=== PATIENT | female | born 1950 | race Caucasian/White ===

== ENCOUNTER 2017-08-28 20:08 | Inpatient (IN) | payer MEDICARE, OTHER ==
[~2017-08-28] VITALS: Ht 162.6 cm; Wt 72.3 kg
[~2017-08-28 20:08] MED LIST: BAYER ASPIRIN PO; CALCIUM; COZAAR25 MG PO; DILTIAZEM 24HR300 M2; EQUATE ACID REDUCER; EQUATE STOOL SOFTNER; FLAGYL500 MG PO; LISINOPRIL20 MG; METOPROLOL TART50 MG PO; MULTIVITAMIN; OXYBUTYNIN CHLOR5 M1 PO; PANTOPRAZOLE SO40 MG PO; SIMVASTATIN10 MG PO; SUCRALFATE1 GM; WARFARIN SODIUM3 MG PO; [UNRECOGNIZED DRUG - OTHER]
[2017-08-28] MEDS ORDERED: ASPIRIN 81 MG CHEW TAB PO ONE (20:30)
[2017-08-28 20:41] LABS: BASOPHILS # (AUTO) 0.1 (0.0-0.1); BASOPHILS % 0.8 % (0.0-1.0); EOSINOPHILS # (AUTO) 0.5 (0.0-0.4); EOSINOPHILS % 6.2 % (0.0-6.0); HEMATOCRIT 41.3 % (34.2-44.1); HEMOGLOBIN 13.8 g/dL (12.0-16.0); LYMPHOCYTES # (AUTO) 2.3 (1.0-3.2); LYMPHOCYTES % 27.3 % (18.0-39.1); MEAN CORPUSCULAR HEMOGLOBIN 32.1 pg (28-32); MEAN CORPUSCULAR HGB CONC 33.4 g/dL (31-35); MONOCYTES # (AUTO) 0.9 (0.2-0.8); MONOCYTES % 10.4 % (4.4-11.3); NEUTROPHILS # (AUTO) 4.6 (2.1-6.9); NEUTROPHILS % 54.3 % (38.7-80.0); PLATELET COUNT 162 x10e3/uL (140-360); RED CELL DISTRIBUTION WIDTH 13.6 % (11.7-14.4)
[2017-08-28 20:45] LABS: INR 1.67; PARTIAL THROMBOPLASTIN TIME 29.4 seconds (23.8-35.5); PROTHROMBIN TIME 20.6 seconds (11.9-14.5)
[2017-08-28 20:52] LABS: ALBUMIN 4.1 g/dL (3.5-5.0); ALBUMIN/GLOBULIN RATIO 1.1 (0.8-2.0); ANION GAP 12.4 mmol/L (8-16); CALCIUM 9.6 mg/dL (8.4-10.2); CREATININE, SERUM 0.97 mg/dL (0.57-1.11); POTASSIUM 3.4 mmol/L (3.5-5.1)
[2017-08-28 20:58] LABS: CREATINE KINASE MB 1.2 ng/mL (0.00-5.00); TROPONIN I 0.004 ng/mL (0-0.300)
--- NOTE | 2017-08-28 21:32 | Diagnostic Imaging Report ---
EXAMINATION: CHEST SINGLE (PORTABLE) INDICATION: Weakness COMPARISON: 06/11/2015 FINDINGS: TUBES and LINES: None. LUNGS: Lungs are well inflated. Lungs are clear. There is no evidence of pneumonia or pulmonary edema. PLEURA: No pleural effusion or pneumothorax. HEART AND MEDIASTINUM: The cardiomediastinal silhouette is unremarkable. There are atherosclerotic calcifications within the aorta. BONES AND SOFT TISSUES: No acute osseous lesion. Lower cervical spine anterior fusion. Soft tissues are remarkable for bilateral surgical clips. UPPER ABDOMEN: No free air under the diaphragm. IMPRESSION: No acute thoracic abnormality. Signed by: Dr. Rah Lizama M.D. on 08/28/2017 9:28 PM
--- NOTE | 2017-08-28 21:33 | Diagnostic Imaging Report ---
EXAMINATION: Head CT without contrast. HISTORY:Possible stroke, weakness. COMPARISON:None. TECHNIQUE: Multidetector axial images were obtained from the foramen magnum to the vertex without contrast. The images were reconstructed using brain and bone algorithms. Thin section brain images were reformatted into coronal and sagittal planes. Intravenous contrast: None IMAGE QUALITY: Acceptable. FINDINGS: Skull/scalp: No abnormality. Parenchyma: Focal hypodensity in right perirolandic region that extends to the right parietal centrum semiovale and mcdermott radiata as well as right periatrial region represents age indeterminate vascular insult. Nonspecific few, scattered supratentorial white matter hypodensity are likely related to small vessel ischemic changes. No acute hemorrhage or mass. Arteries: Atherosclerotic calcification in bilateral carotid siphon Dural sinuses: No abnormal density suggestive of thrombosis. Ventricles: No hydrocephalus or displacement. Extra-axial spaces: No abnormal density. Brain volume: Normal for age. Craniocervical junction: No mass, Chiari malformation, or basilar invagination. Sella: No mass. Paranasal/mastoid sinuses: Moderate mucosal thickening in bilateral ethmoid sinuses. IMPRESSION: 1. Age indeterminate vascular insult in right perirolandic region that extends to the parietal centrum semiovale and mcdermott radiata. 2. Mild supratentorial white matter microvascular ischemic changes. Signed by: Dr. Crystal Patel M.D. on 08/28/2017 9:30 PM
[2017-08-28 22:27] LABS: BILIRUBIN,URINE NEGATIVE (NEGATIVE); KETONES,URINE NEGATIVE (NEGATIVE); LEUKOCYTE ESTERASE ,URINE 2+ (NEGATIVE); NITRITE,URINE NEGATIVE (NEGATIVE); URINE UROBILINOGEN 0.2 mg/dL (0.2 - 1)
[2017-08-28 22:29] LABS: CLARITY,URINE CLEAR (CLEAR); COLOR,URINE YELLOW (YELLOW); PROTEIN,URINE DIPSTICK TRACE (NEGATIVE)
[2017-08-28 22:40] LABS: BACTERIA,URINE FEW /HPF; EPITHELIAL CELLS,URINE FEW /LPF
[2017-08-28] MEDS ORDERED: MONTELUKAST SOD10 MG PO (23:25)
[2017-08-28] MEDS ORDERED: WARFARIN SODIUM1 MG PO (23:25)
[2017-08-28] MEDS ORDERED: CETIRIZINE HCL10 MG PO (23:25)
[2017-08-29] MEDS ORDERED: ONDANSETRON HCL INJ 2 MG/ML VIAL IV PRN (00:15)
[2017-08-29] MEDS: SODIUM CHLORIDE 0.9% 1000ML 1,000 ML IV SCH ×2 (00:34→08:26)
[2017-08-29] MEDS ORDERED: CEFTRIAXONE SOD 1 GM in WATER STERILE 10ML VIAL 10 ML IV SCH (01:00)
[2017-08-29 01:29] VITALS: BP 155/75
[2017-08-29 04:00] VITALS: BP 150/70
[2017-08-29 08:00] VITALS: BP 169/75
[2017-08-29] MEDS ORDERED: POTASSIUM CHLORIDE 10 MEQ TABCR PO ONE (08:00)
[2017-08-29] MEDS: LORATADINE 10 MG TAB PO SCH (08:26)
[2017-08-29] MEDS: LOSARTAN POTASSIUM 25 MG TAB PO SCH (08:26)
[2017-08-29] MEDS: ASPIRIN 81 MG CHEW TAB PO SCH (08:26)
[2017-08-29] MEDS: OXYBUTYNIN CHLORIDE XL 5 MG TAB PO SCH (08:27)
[2017-08-29] MEDS: METOPROLOL TARTRATE 50 MG TAB PO SCH ×2 (08:27→16:47)
[2017-08-29] MEDS: MONTELUKAST SODIUM 10 MG TAB PO SCH (08:27)
[2017-08-29] MEDS: PANTOPRAZOLE SOD 40 MG TABEC PO SCH (08:27)
[2017-08-29] MEDS: CEFTRIAXONE SOD 2 GM in WATER STERILE 10ML VIAL 20 ML IV SCH (08:52)
[2017-08-29 12:11] VITALS: BP 150/72
--- NOTE | 2017-08-29 13:57 | Diagnostic Imaging Report ---
EXAMINATION: MRI of the brain without contrast. HISTORY: Evaluate for stroke/TIA, weakness COMPARISON: Head CT on 08/28/2017 TECHNIQUE: Sagittal T2; axial DWI, T2, FLAIR, T1-IR, T2 gradient echo; coronal FLAIR. IMAGE QUALITY: Adequate. FINDINGS: Parenchyma: 1. Cavitating encephalomalacia in the right parietal mcdermott radiata-periventricular white matter, with compensatory dilatation of the right lateral ventricle, likely sequela from remote insult such as infarct, infection or trauma, correlate with past medical history. 2. Scattered and mildly confluent periventricular white matter T2 hyperintense foci as well as in the right elizabeth, most likely nonspecific mild chronic microvascular ischemic changes. 3. No mass, hemorrhage, acute or chronic infarcts. Skull: Unremarkable. Vessels: Expected flow voids present in the major arteries and dural sinuses. Extra-axial spaces: No abnormal signal intensity or mass effect. Brain volume: Within normal limits for age. Ventricles: No hydrocephalus or displacement. Foramen magnum: Unremarkable. Sella: Unremarkable. Paranasal / mastoid sinuses: Mild mucosal inflammatory thickening of the bilateral ethmoidal and maxillary sinuses. IMPRESSION: 1. No acute infarct. 2. Right parietal encephalomalacia, likely sequela from remote insult. 3. Mild chronic microvascular ischemic changes Signed by: Dr. Minoo Jean M.D. on 08/29/2017 1:53 PM
[2017-08-29 15:49] VITALS: BP 131/68
--- NOTE | 2017-08-29 16:34 | Consultation ---
DATE OF CONSULTATION: August 29, 2017 CARDIOLOGY CONSULTATION CHIEF COMPLAINT: Is dizziness. HISTORY OF PRESENT ILLNESS: Ms. Asencio is a 67-year-old female with a history of atrial fibrillation on warfarin. She comes in with altered mental status and disorientation along with slurred speech which has recovered completely. Her INR at the time of admission was 1.67 and is subtherapeutic. Prior to this admission, she had a stress test done at Dr. Sudarshan Sandoval's office which showed some mild inferior ischemia. Her cardiac enzymes at the time of admission currently are normal. PAST MEDICAL HISTORY: As listed above. SOCIAL HISTORY: Patient does not smoke or drink. DRUG ALLERGIES: LEVOFLOXACIN, MORPHINE. REVIEW OF SYSTEMS: Negative except as dictated in the history of present illness. PHYSICAL EXAMINATION: VITALS: Afebrile, heart rate 66, blood pressure 150/72, O2 sat 98%. CARDIOVASCULAR: Regular rhythm. No murmurs or gallops. LUNGS: Clear to auscultation bilaterally. ABDOMEN: Soft. Bowel sounds heard adequately. NEUROLOGIC: Nonfocal. ASSESSMENT: 1. Transient ischemic attack. 2. Coronary artery disease with abnormal stress test. RECOMMENDATION: MRI of the brain reveals no evidence of acute infarct. The patient's warfarin is subtherapeutic. I had an extended discussion with her about maintaining subtherapeutic levels of warfarin. Additionally, she has had an abnormal stress test. Cardiac cath is indicated. This will be performed once her INR is less than 1.3. I thank Dr. Sandoval for this consultation. Job#: [id number] EV
[2017-08-29] MEDS ORDERED: WARFARIN SOD 1 MG TAB PO SCH ×2 (17:00)
--- NOTE | 2017-08-29 18:12 | Consultation ---
DATE OF CONSULTATION: August 29, 2017, at 2:30 in the afternoon. NEUROLOGICAL CONSULTATION A patient of Dr. Sudarshan Sandoval. REASON FOR CONSULTATION: TIA. HISTORY OF PRESENT ILLNESS: This is a 67-year-old female who has been stable until yesterday. They said in the evening they were sitting , eating. She was feeling well but then suddenly started feeling like generalized weak, like dizzy, like lightheaded and started having some blurry vision. All this got worse and she said she could not see anything and she felt like she was going to pass out. The whole episode lasted for about 15 minutes. She was brought to the hospital emergency room for further evaluation and management. At the time of this spell, she denies any headache. She denies any swallowing difficulty. Also the says her speech was somewhat slurred. She denied any chest pain, palpitation. No focal paresthesia, no focal weakness. Just generalized weakness. PAST HISTORY: Hypertension. She had had previous history of stroke, a history of atrial fibrillation, coronary artery disease. SURGERY: She has a hysterectomy and double mastectomies. ALLERGIES: NONE KNOWN. SOCIAL HISTORY: Apparently she does not smoke or drink. LIST OF MEDICATION SHE HAS BEEN TAKING: At home she has been taking simvastatin 10 mg a day. She is taking Jorge aspirin 81 mg a day. Oxybutynin 5 mg daily. Metoprolol tartrate 50 mg a day. Losartan 25 mg a day. Flagyl and pantoprazole. The patient has been taking warfarin 5 mg a day. FAMILY HISTORY: Noncontributory. REVIEW OF SYSTEMS: At the present time, all 12 steps negative except what is described above. GENERAL PHYSICAL EXAMINATION VITAL SIGNS: Blood pressure is 150/72, pulse 66, temperature is 96. GENERAL: She is feeling well. No chest pain, no palpitation, no visual disturbance, no headaches, no focal weakness, no focal paresthesia. Patient states that in the past she had a stroke several years ago, and that is when she started having atrial fibrillation. LUNGS: Clear to auscultation. HEART: Regular sinus rhythm. There was no murmur. ABDOMEN: Soft. No tenderness. No organomegaly. MUSCULOSKELETAL: Lower extremities: No edema, no cyanosis, no clubbing. No back or neck pain. NEUROLOGIC Mental status: At the time of this examination, she is fully alert. She is oriented x3. Speech is clear. No dysarthria. No dysphagia. Cranial nerves: Pupils were both equal and reactive. External ocular movements were full. No nystagmus. Visual field on confrontation was grossly normal. No facial weakness. Tongue protrudes midline. Palatal movements normal. Motor power: Patient is able to elevate each leg against gravity approximately 80 degrees without any difficulty. On the upper extremities, there is no weakness in either proximal or distal muscles of both upper extremities and both lower extremities also. Flexion of the hip is 5/5. Flexion and extension of the knees 5/5. Dorsiflexion of the ankles 5/5. Plantarflexion is 5/5. Dorsal extension 5/5. Deep tendon reflexes: Triceps, biceps, radials 1+. Knee jerks 1+. Ankle jerks were absent bilaterally. Plantar stimulation is down bilaterally. Coordination: Hkhvxy-od-jdno is normal. GAIT: Deferred. NECK: Supple. Normal range of motion without discomfort. Carotid pulsations were present bilaterally. There were no carotid bruits, neither subclavian bruits bilaterally. LABORATORY WORKUP: CBC shows WBC 8400 with a hemoglobin 13.8, hematocrit 41.3, platelets 162,000. Chemistry: Sodium 139, potassium 3.4, BUN 14, creatinine 0.97, estimated GFR 57, calcium 9.6, glucose 104. Liver enzymes are all normal. Troponin is normal. Urinalysis: WBC 11-20, protein trace, blood 2+. Urine culture is pending. IMPRESSION 1. Acute transient ischemic attack (bilateral amaurosis fugax). 2. Hypertension. 3. Acute cystitis. RECOMMENDATION: I reviewed the films for the MRI of the brain and agree with the (1) right parietal encephalomalacia probably from previous stroke that she mentioned. (2) There is chronic small-vessel disease, nothing acute. Patient is scheduled to have a cardiac cath by Dr. Schultz. We will wait for those results and will discuss with the patient and with the attending and will follow the patient closely. Job#: [id number] EV
[2017-08-29 20:00] VITALS: BP 152/73
[2017-08-29] MEDS: SIMVASTATIN 20 MG TAB PO SCH (21:41)
[2017-08-30] VITALS: BP 155/69
--- NOTE | 2017-08-30 01:17 | History and Physical ---
CHIEF COMPLAINT: 1. Dizziness. 2. Severe weakness. HPI: This is 67-year-old female with past medical history of hypertension; hyperlipidemia; coronary artery disease; atrial fibrillation, on Coumadin, was sitting at [employer], meeting with the , found to have dizziness, brief loss of vision on the left eye, no focal weakness, but has generalized weakness and the patient was not feeling good, so told to take her to the emergency room. In the emergency room, found to have little abnormal on CAT scan. Has some burning urination. UA showed some kind of UTI. No chest pain. No shortness of breath. No diarrhea. No abdominal pain. No nausea. No vomiting. No hematemesis. No melena. No seizures. No focal weakness. No palpitation. No leg pain. No leg swelling. PAST MEDICAL HISTORY: 1. Hypertension. 2. Hyperlipidemia. 3. Atrial fibrillation. 4. Coronary artery disease. PAST SURGICAL HISTORY: Hysterectomy. SOCIAL HISTORY: Patient is . Lives with . HABITS: Denies smoking. Denies alcohol use. Denies illicit drug use. FAMILY HISTORY: Noncontributory. MEDICATIONS LIST: Attached. REVIEW OF SYSTEMS: GENERAL: Generalized fatigue and weakness. HEENT: No diplopia. Has some blurry vision on the left eye. CARDIOPULMONARY: No chest pain. No palpitation. No shortness of breath. ALIMENTARY SYSTEM: No nausea. No vomiting. MUSCULOSKELETAL SYSTEM: No joint pain. CENTRAL NERVOUS SYSTEM: No focal weakness. No seizures. PHYSICAL EXAMINATION: GENERAL: Bxqxp-ilqkd-psir-old female who is alert and oriented x3, in no gross distress. VITAL SIGNS: Temperature 98.2, pulse 82, respiratory rate 18, blood pressure 150/80. HEENT: Within normal limits. NECK: Supple. No JVD, no carotid bruit. LUNGS: Clear to auscultation and percussion bilaterally. No added sounds. HEART: S1 and S2. Regular rate and rhythm. No S3, no S4. No murmur. ABDOMEN: Soft, nontender. No guarding, no rigidity. EXTREMITIES: No pedal edema. Peripheral pulses +1. PAYROLL ACCOUNTING CLERK: Grossly nonfocal. LABORATORY DATA: Urine showed UTI. CBC normal. CMP normal. CT of head showed some infarct. EKG, normal sinus rhythm, 70 per minute. ASSESSMENT: 1. Possible transient ischemic attack. 2. Urinary tract infection. 3. Weakness. 4. Hypertension. 5. Hyperlipidemia. 6. Atherosclerotic heart disease. 7. Coronary artery disease. PLAN: Admit to telemetry. Cardiology consult, Dr. Blas. Neuro consult, Dr. Yanez. Increase dose of Coumadin to 2 mg p.o. daily. MRI of brain. Carotid Doppler. Will discuss with boy's adviser. Discussed with patient, told condition and prognosis. Job#: [id number]
[2017-08-30 04:00] VITALS: BP 160/76
[2017-08-30] MEDS: SODIUM CHLORIDE 0.9% 1000ML 1,000 ML IV SCH (05:15)
[2017-08-30 07:20] LABS: BASOPHILS % 0.6 % (0.0-1.0); EOSINOPHILS # (AUTO) 0.5 (0.0-0.4); EOSINOPHILS % 6.8 % (0.0-6.0); HEMATOCRIT 39.2 % (34.2-44.1); LYMPHOCYTES # (AUTO) 1.7 (1.0-3.2); LYMPHOCYTES % 25.2 % (18.0-39.1); MEAN CORPUSCULAR HEMOGLOBIN 31.6 pg (28-32); MEAN CORPUSCULAR HGB CONC 33.2 g/dL (31-35); MEAN CORPUSCULAR VOLUME 95.4 fL (81-99); MONOCYTES # (AUTO) 0.7 (0.2-0.8); MONOCYTES % 10.6 % (4.4-11.3); NEUTROPHILS # (AUTO) 3.7 (2.1-6.9); NEUTROPHILS % 56.2 % (38.7-80.0); PLATELET COUNT 139 x10e3/uL (140-360); RED BLOOD COUNT 4.11 x10e6/uL (3.6-5.1); RED CELL DISTRIBUTION WIDTH 13.6 % (11.7-14.4)
[2017-08-30 07:33] LABS: INR 1.42; PROTHROMBIN TIME 18.1 seconds (11.9-14.5)
[2017-08-30 07:47] LABS: ALANINE AMINOTRANSFERASE 19 IU/L (0-55); ALBUMIN 3.4 g/dL (3.5-5.0); ALBUMIN/GLOBULIN RATIO 1.1 (0.8-2.0); ALKALINE PHOSPHATASE 55 IU/L (40-150); ANION GAP 11.6 mmol/L (8-16); BLOOD UREA NITROGEN 9 mg/dL (7-26); BUN/CREATININE RATIO 15 (6-25); CALCIUM 9.3 mg/dL (8.4-10.2); CARBON DIOXIDE 22 mmol/L (22-29); CHLORIDE 113 mmol/L (98-107); EST GLOMERULAR FILTRATION RATE > 60 ML/MIN (60-); GLUCOSE 103 mg/dL (74-118); POTASSIUM 3.6 mmol/L (3.5-5.1); SODIUM 143 mmol/L (136-145)
[2017-08-30] MEDS: METOPROLOL TARTRATE 50 MG TAB PO SCH ×2 (08:05→16:46)
[2017-08-30] MEDS: LOSARTAN POTASSIUM 25 MG TAB PO SCH (08:05)
[2017-08-30 08:16] VITALS: BP 189/91
[2017-08-30] MEDS: CEFTRIAXONE SOD 2 GM in WATER STERILE 10ML VIAL 20 ML IV SCH (08:31)
[2017-08-30] MEDS: ASPIRIN 81 MG CHEW TAB PO SCH (09:00)
[2017-08-30] MEDS: LORATADINE 10 MG TAB PO SCH (09:00)
[2017-08-30] MEDS: MONTELUKAST SODIUM 10 MG TAB PO SCH (09:00)
[2017-08-30] MEDS: OXYBUTYNIN CHLORIDE XL 5 MG TAB PO SCH (09:00)
[2017-08-30] MEDS: PANTOPRAZOLE SOD 40 MG TABEC PO SCH (09:00)
[2017-08-30] MEDS ORDERED: HYDRALAZINE HCL 20 MG/ML VIAL IV PRN (09:45)
[2017-08-30 09:49] LABS: CHOL/HDL RATIO 2.8 (3.0-3.6); CHOLESTEROL 170 MD/DL (0-199); HDL CHOLESTEROL 60 MG/DL (40-60); LDL CHOLESTEROL 97 MG/DL (60-130); TRIGLYCERIDES 64 MG/DL (0-149)
--- NOTE | 2017-08-30 11:01 | Progress Note ---
DATE: August 30, 2017 CARDIOLOGY PROGRESS NOTE SUBJECTIVE: Patient denies chest pain or shortness of breath. Unfortunately, her INR remains elevated. OBJECTIVE VITAL SIGNS: Temperature 96.9 degrees, pulse 66, respiratory rate 20, blood pressure 191/86, oxygen saturation 100% on room air. GENERAL: Awake, alert, in no acute distress. LUNGS: Clear to auscultation bilaterally. No wheezes or crackles. CARDIOVASCULAR: Normal rate, regular rhythm. No murmur. Normal S1 and S2. ABDOMEN: Soft, nontender. EXTREMITIES: No edema. CARDIAC MEDICATIONS Metoprolol tartrate 50 mg p.o. b.i.d. Losartan 100 mg p.o. daily. Simvastatin 10 mg p.o. at bedtime. Aspirin 81 mg p.o. daily. LABS: WBC 6.6, hemoglobin 13, hematocrit 39.2, platelets 139. Sodium 143, potassium 3.6, chloride 113, CO2 of 22, BUN 9, creatinine 0.6. Triglycerides 64, cholesterol 170, LDL 97, HDL 60. TELEMETRY: Normal sinus rhythm. IMPRESSION 1. Transient ischemic attack. 2. Coronary artery disease with abnormal stress test. 3. Urinary tract infection. 4. Hypertension with hyperlipidemia. RECOMMENDATIONS: Patient's INR is currently too high for coronary angiography at this time. N.p.o. after midnight was planned for coronary angiogram tomorrow. In the meantime, continue current cardiac medications. Thank you for this consult. We will continue to follow. Job#: [id number] DOLAN MTDD
[2017-08-30 12:00] VITALS: BP 159/77
[2017-08-30 16:37] VITALS: BP 131/60
[2017-08-30 20:00] VITALS: BP 164/77
[2017-08-30] MEDS: SIMVASTATIN 20 MG TAB PO SCH (21:55)
[2017-08-31] VITALS: BP 164/79
[2017-08-31 03:56] VITALS: BP 164/79
[2017-08-31 07:39] LABS: INR 1.3; PROTHROMBIN TIME 16.9 seconds (11.9-14.5)
[2017-08-31 08:01] VITALS: BP 153/67
[2017-08-31] MEDS: PANTOPRAZOLE SOD 40 MG TABEC PO SCH (09:00)
[2017-08-31] MEDS: ASPIRIN 81 MG CHEW TAB PO SCH (09:00)
[2017-08-31] MEDS: LORATADINE 10 MG TAB PO SCH (09:00)
[2017-08-31] MEDS: OXYBUTYNIN CHLORIDE XL 5 MG TAB PO SCH (09:00)
[2017-08-31] MEDS: LOSARTAN POTASSIUM 25 MG TAB PO SCH (09:00)
[2017-08-31] MEDS: MONTELUKAST SODIUM 10 MG TAB PO SCH (09:00)
[2017-08-31] MEDS: CEFTRIAXONE SOD 2 GM in WATER STERILE 10ML VIAL 20 ML IV SCH (09:00)
[2017-08-31] MEDS: METOPROLOL TARTRATE 50 MG TAB PO SCH ×2 (09:00→17:29)
[2017-08-31] MEDS ORDERED: HEPARIN SOD (PORCINE) 1000 UNIT/ML 30ML ONE (12:23)
[2017-08-31] MEDS ORDERED: LIDOCAINE HCL 2% LOCAL 20 ML VIAL ONE (12:24)
[2017-08-31] MEDS ORDERED: FENTANYL CITRATE/PF 100MCG/2 ML INJ ONE (12:24)
[2017-08-31] MEDS ORDERED: MIDAZOLAM HCL 2 MG/2 ML VIAL ONE (12:24)
[2017-08-31] MEDS ORDERED: IOPAMIDOL 370 MG/ML 200 ML INFUS..BTL INJ ONE ×2 (12:25→12:28)
[2017-08-31] MEDS ORDERED: SODIUM CHLORIDE 0.9% 250ML 0 ML ONE (12:25)
[2017-08-31] MEDS ORDERED: HEPARIN SOD/SOD CHLORIDE 2,000 ML ONE (12:25)
[2017-08-31] MEDS ORDERED: SODIUM CHLORIDE 0.9% 500ML 500 ML ONE (12:28)
[2017-08-31 13:49] VITALS: BP 154/73
[2017-08-31] MEDS: SODIUM CHLORIDE 0.9% 1000ML 1,000 ML IV SCH ×2 (14:30→23:45)
--- NOTE | 2017-08-31 14:58 | History and Physical ---
INCOMPLETE REPORT Job#: [id number] EV
--- NOTE | 2017-08-31 15:01 | Operative Report ---
DATE OF PROCEDURE: August 31, 2017 INDICATIONS: Coronary artery disease. Abnormal stress test. PROCEDURES PERFORMED: Left heart catheterization, selective coronary angiography. COMPLICATIONS: None. RECOMMENDATIONS: Medical therapy for atrial fibrillation. Access was obtained in the right femoral artery. A 6-Upper Sorbian sheath was placed. Diagnostic coronary angiogram revealed mild diffuse coronary artery disease in the left coronary system, which was a dominant vessel, less than 20% luminal stenosis. Right coronary artery was nondominant. Excellent flow. No critical stenosis or occlusions were noted. Right groin sheath was removed under manual pressure. Patient transferred to the floor in stable condition. Job#: [id number] EV
--- NOTE | 2017-08-31 15:13 | Progress Note ---
DATE: August 31, 2017 CARDIOLOGY PROGRESS NOTE SUBJECTIVE: Ms. Asencio underwent coronary angiography. She has minimal coronary artery disease. OBJECTIVE VITAL SIGNS: Afebrile. Heart rate 78. Blood pressure is 140/72. CARDIOVASCULAR: Regular rhythm. No murmurs or gallops. LUNGS: Clear to auscultation bilaterally. ABDOMEN: Soft. Bowel sounds are heard adequately. ASSESSMENT 1. Coronary artery disease with abnormal stress test. 2. Atrial fibrillation with transient ischemic attack. PLAN: Resumption of anticoagulation with warfarin for target INR of 2 to 3. The patient has mild coronary artery disease. At this point, she is in sinus rhythm. She may be discharged with close followup with Dr. Sandoval in the office with recheck of warfarin and INR. I did discuss the options of direct oral anticoagulant. Pantoja remains an issue for the patient. Further discussions as an outpatient. Job#: [id number]
[2017-08-31] MEDS ORDERED: TRAMADOL HCL 50 MG TAB PO PRN (16:15)
[2017-08-31 16:49] VITALS: BP 167/76
[2017-08-31 20:00] VITALS: BP 129/81
[2017-08-31] MEDS: SIMVASTATIN 20 MG TAB PO SCH (20:47)
[2017-09-01] VITALS: BP 139/66
[2017-09-01 04:00] VITALS: BP 120/66
[2017-09-01 07:07] LABS: BASOPHILS # (AUTO) 0.1 (0.0-0.1); BASOPHILS % 0.7 % (0.0-1.0); EOSINOPHILS # (AUTO) 0.4 (0.0-0.4); EOSINOPHILS % 5.8 % (0.0-6.0); HEMATOCRIT 39.8 % (34.2-44.1); HEMOGLOBIN 13.1 g/dL (12.0-16.0); LYMPHOCYTES # (AUTO) 1.9 (1.0-3.2); LYMPHOCYTES % 26.9 % (18.0-39.1); MEAN CORPUSCULAR HEMOGLOBIN 31.6 pg (28-32); MEAN CORPUSCULAR HGB CONC 32.9 g/dL (31-35); MEAN CORPUSCULAR VOLUME 95.9 fL (81-99); MONOCYTES # (AUTO) 0.8 (0.2-0.8); MONOCYTES % 11.6 % (4.4-11.3); NEUTROPHILS # (AUTO) 3.8 (2.1-6.9); NEUTROPHILS % 54.2 % (38.7-80.0); PLATELET COUNT 75 x10e3/uL (140-360); RED BLOOD COUNT 4.15 x10e6/uL (3.6-5.1); RED CELL DISTRIBUTION WIDTH 13.8 % (11.7-14.4)
[2017-09-01 07:28] LABS: ALANINE AMINOTRANSFERASE 16 IU/L (0-55); ALBUMIN 3.5 g/dL (3.5-5.0); ALBUMIN/GLOBULIN RATIO 1.1 (0.8-2.0); ALKALINE PHOSPHATASE 49 IU/L (40-150); ANION GAP 12.8 mmol/L (8-16); BLOOD UREA NITROGEN 10 mg/dL (7-26); BUN/CREATININE RATIO 16 (6-25); CARBON DIOXIDE 21 mmol/L (22-29); CHLORIDE 110 mmol/L (98-107); CREATININE, SERUM 0.62 mg/dL (0.57-1.11); EST GLOMERULAR FILTRATION RATE > 60 ML/MIN (60-); GLUCOSE 96 mg/dL (74-118); POTASSIUM 3.8 mmol/L (3.5-5.1); SODIUM 140 mmol/L (136-145)
[2017-09-01] MEDS: METOPROLOL TARTRATE 50 MG TAB PO SCH (09:15)
[2017-09-01] MEDS: PANTOPRAZOLE SOD 40 MG TABEC PO SCH (09:15)
[2017-09-01] MEDS: LORATADINE 10 MG TAB PO SCH (09:15)
[2017-09-01] MEDS: MONTELUKAST SODIUM 10 MG TAB PO SCH (09:15)
[2017-09-01] MEDS: ASPIRIN 81 MG CHEW TAB PO SCH (09:15)
[2017-09-01] MEDS: OXYBUTYNIN CHLORIDE XL 5 MG TAB PO SCH (09:15)
[2017-09-01] MEDS: CEFTRIAXONE SOD 2 GM in WATER STERILE 10ML VIAL 20 ML IV SCH (09:15)
[2017-09-01] MEDS: LOSARTAN POTASSIUM 25 MG TAB PO SCH (09:15)
[2017-09-01] MEDS: SODIUM CHLORIDE 0.9% 1000ML 1,000 ML IV SCH (09:45)
[2017-09-01] MEDS ORDERED: KEFLEX500 MG PO (10:39)
--- NOTE | 2017-09-01 12:32 | Progress Note ---
DATE: September 01, 2017 CARDIOLOGY PROGRESS NOTE SUBJECTIVE: Patient denies chest pain or shortness of breath. OBJECTIVE VITAL SIGNS: Temperature 97.6 degrees, pulse 55, respiratory rate 18, blood pressure 132/62, oxygen saturation 98% on room air. GENERAL: Awake, alert, in no acute distress. LUNGS: Clear to auscultation bilaterally. No wheezes or crackles. CARDIOVASCULAR: Normal rate, regular rhythm. No murmur. Normal S1 and S2. ABDOMEN: Soft, nontender. EXTREMITIES: No edema. RIGHT GROIN: Without hematoma or bruit. CARDIAC MEDICATIONS Aspirin 81 mg p.o. daily. Metoprolol tartrate 50 mg p.o. b.i.d. Losartan 100 mg p.o. daily. Simvastatin 10 mg p.o. at bedtime. LABS: WBC 7.06, hemoglobin 13.1, hematocrit 39.8, platelets 75. Sodium 140, potassium 3.8, chloride 110, CO2 21, BUN 10, creatinine 0.62. TELEMETRY: Normal sinus rhythm. IMPRESSION 1. Transient ischemic attack. 2. Coronary artery disease with abnormal stress test. 3. Urinary tract infection. 4. Hypertension. 5. Hyperlipidemia. RECOMMENDATIONS: Coronary angiogram revealed mild diffuse coronary artery disease with less than 20% luminal stenosis. Start Eliquis. Given the patient's difficulty with warfarin, will start Eliquis 5 mg p.o. b.i.d. Stop warfarin. The patient was counseled on the risks and benefits of Eliquis including the lack of reversal agent. The patient is agreeable to proceed. Continue current cardiac medications otherwise. Thank you for this consult. We will continue to follow. She has been instructed to follow up with Dr. Blas in 1 week. Job#: [id number]
== END 2017-09-01 11:00 | disposition home or self-care (01) | DRG 69 ==
LOC: ER 20:08 → ERHOLD 08-29 00:27 → MED/SURG 08-29 01:10
PROVIDERS: ADMIT Internal Medicine; ATTEND Internal Medicine
PROC: 4A023N7 Measurement of Cardiac Sampling and Pressure, Left Heart, Percutaneous Approach (ICD-10-PCS; principal; 2017-08-31)
PROC: B2111ZZ Fluoroscopy of Multiple Coronary Arteries using Low Osmolar Contrast (ICD-10-PCS; 2017-08-31)
PROC: B2151ZZ Fluoroscopy of Left Heart using Low Osmolar Contrast (ICD-10-PCS; 2017-08-31)
DX: G45.9 Transient cerebral ischemic attack, unspecified (principal); I48.91 Unspecified atrial fibrillation; N30.00 Acute cystitis without hematuria; G45.3 Amaurosis fugax; I10 Essential (primary) hypertension; I25.10 Atherosclerotic heart disease of native coronary artery without angina pectoris; Z79.01 Long term (current) use of anticoagulants; Z86.73 Personal history of transient ischemic attack (TIA), and cerebral infarction without residual deficits; E78.5 Hyperlipidemia, unspecified
CPT/HCPCS: 36140; 36415; 70450; 70551; 71010; 77002; 80053; 80061; 81001; 82550; 82553; 84484; 85025; 85610; 85730; 87086; 93005; 93458; 93880; 97139; 99284; J0360; J0696; J1644; J2001; J2250; J7030; J7040; J7050; Q9967

== ENCOUNTER → 2018-08-07 | Day surgery (SDC) | payer MEDICARE, OTHER ==
[2018-08-06 15:49] LABS: BASOPHILS # (AUTO) 0.1 (0.0-0.1); BASOPHILS % 0.6 % (0.0-1.0); EOSINOPHILS # (AUTO) 0.3 (0.0-0.4); EOSINOPHILS % 3.7 % (0.0-6.0); HEMATOCRIT 38.4 % (34.2-44.1); LYMPHOCYTES # (AUTO) 2.6 (1.0-3.2); LYMPHOCYTES % 31.3 % (18.0-39.1); MEAN CORPUSCULAR HEMOGLOBIN 28.6 pg (28-32); MEAN CORPUSCULAR HGB CONC 31.3 g/dL (31-35); MEAN CORPUSCULAR VOLUME 91.6 fL (81-99); MONOCYTES # (AUTO) 0.6 (0.2-0.8); MONOCYTES % 7.3 % (4.4-11.3); NEUTROPHILS # (AUTO) 4.6 (2.1-6.9); NEUTROPHILS % 56.9 % (38.7-80.0); PLATELET COUNT 121 x10e3/uL (140-360); RED BLOOD COUNT 4.19 x10e6/uL (3.6-5.1); RED CELL DISTRIBUTION WIDTH 14.2 % (11.7-14.4)
[2018-08-06 15:52] LABS: INR 0.87; PROTHROMBIN TIME 12.7 seconds (11.9-14.5)
[2018-08-06 16:00] LABS: ANION GAP 13.1 mmol/L (8-16); BLOOD UREA NITROGEN 13 mg/dL (7-26); BUN/CREATININE RATIO 18 (6-25); CALCIUM 9.6 mg/dL (8.4-10.2); CARBON DIOXIDE 24 mmol/L (22-29); CHLORIDE 104 mmol/L (98-107); CREATININE, SERUM 0.71 mg/dL (0.57-1.11); EST GLOMERULAR FILTRATION RATE > 60 ML/MIN (60-); GLUCOSE 85 mg/dL (74-118); POTASSIUM 4.1 mmol/L (3.5-5.1); SODIUM 137 mmol/L (136-145)
[~2018-08-07] VITALS: Ht 162.6 cm; Wt 72.1 kg
[~2018-08-07] MED LIST changes: +CETIRIZINE HCL10 MG PO; +KEFLEX500 MG PO; +LIDOCAINE 1% W/EPINEPHRINE 20 ML VIAL ONE; +MONTELUKAST SOD10 MG PO; -MULTIVITAMIN; +MULTIVITAMIN PO; +SODIUM BICARBONATE 8.4% SYRING 50 ML ONE; -SUCRALFATE1 GM; +SUCRALFATE1 GM PO; +WARFARIN SODIUM1 MG PO; +XARELTO20 MG PO
--- OUTSIDE RECORDS SUMMARY | 2018-08-07 11:44 | XMS REPORT ---
Author Author [facility] Address Unknown Phone Unavailable Care Team Providers Care Automobile Appraiser Name Role Phone CHARLIE BOWSER Unavailable Unavailable Problems This patient has no known problems. Allergies, Adverse Reactions, Alerts This patient has no known allergies or adverse reactions. Medications This patient has no known medications. Results Test Description Test Time Test Comments Text Results Atomic Results Result Comments MRI BRAIN WO [place] [address] Patient Name: ALDO LEVI MR #: [id number] : 1950 Age/Sex: 67/F Req #: [id number] Adm Physician: CHARLIE BOWSER MD Ordered by: LINCOLN BONDS MD Report #: [id number] Location: MED/SURG Room/Bed: [facility] Procedure: [id number] MRI/MRI BRAIN WO Exam Date: Exam Time: REPORT STATUS: Signed EXAMINATION: MRI of the brain without contrast. HISTORY: Evaluate for stroke/TIA, weakness COMPARISON: Head CT on 08/28/2017 TECHNIQUE: Sagittal T2; axial DWI, T2, FLAIR, T1-IR, T2 gradient echo; coronal FLAIR. IMAGE QUALITY: Adequate. FINDINGS: Parenchyma: 1. Cavitating encephalomalacia in the right parietal mcdermtot radiata- periventricular white matter, with compensatory dilatation of the right lateral ventricle, likely sequela from remote insult such as infarct, infection or trauma, correlate with past medical history. 2. Scattered and mildly confluent periventricular white matter T2 hyperintense foci as well as in the right elizabeth, most likely nonspecific mild chronic microvascular ischemic changes. 3. No mass, hemorrhage, acute or chronic infarcts. Skull: Unremarkable. Vessels: Expected flow voids present in the major arteries and dural sinuses. Extra-axial spaces: No abnormal signal intensity or mass effect. Brain volume: Within normal limits for age. Ventricles: No hydrocephalus or displacement. Foramen magnum: Unremarkable. Sella: Unremarkable. Paranasal / mastoid sinuses: Mild mucosal inflammatory thickening of the bilateral ethmoidal and maxillary sinuses. IMPRESSION: 1. No acute infarct. 2. Right parietal encephalomalacia, likely sequela from remote insult. 3. Mild chronic microvascular ischemic changes Signed by: Dr. Sheila Jean M.D. on 08/29/2017 1:53 PM Dictated By: SHEILA JEAN MD 1353 Transcribed By: JENNY on 08/29/17 1353 COPY TO: LINCOLN BONDS MD CHEST SINGLE (PORTABLE) [place] [address] Patient Name: ALDO LEVI MR #: [id number] : 1950 Age/Sex: 67/F Req #: [id number] Adm Physician: Ordered by: LINCOLN BONDS MD Report #: [id number] Location: ER Room/Bed: Procedure: [id number] DX/CHEST SINGLE (PORTABLE) Exam Date: 08/28/17 Exam Time: 2100 REPORT STATUS: Signed EXAMINATION: CHEST SINGLE (PORTABLE) INDICATION: Weakness COMPARISON: 06/11/2015 FINDINGS: TUBES and LINES: None. LUNGS: Lungs are well inflated. Lungs are clear. There is no evidence of pneumonia or pulmonary edema. PLEURA: No pleural effusion or pneumothorax. HEART AND MEDIASTINUM: The cardiomediastinal silhouette is unremarkable. There are atherosclerotic calcifications within the aorta. BONES AND SOFT TISSUES: No acute osseous lesion. Lower cervical spine anterior fusion. Soft tissues are remarkable for bilateral surgical clips. UPPER ABDOMEN: No free air under the diaphragm. IMPRESSION: No acute thoracic abnormality. Signed by: Dr. Rah Lizama M.D. on 08/28/2017 9:28 PM Dictated By: RAH DAVILA MD 27 Transcribed By: JENNY on 08/28/172127 COPY TO: LINCOLN BONDS MD CT BRAIN WO [place] [address] Patient Name: ALDO LEVI MR #: [id number] : 1950 Age/Sex: 67/F Req #: [id number] Adm Physician: Ordered by: LINCOLN BONDS MD Report #: [id number] Location: ER Room/Bed: Procedure: [id number] CT/CT BRAIN WO Exam Date: 08/28/17 Exam Time: 2054 REPORT STATUS: Signed EXAMINATION: Head CT without contrast. HISTORY:Possible stroke, weakness. COMPARISON:None. TECHNIQUE: Multidetector axial images were obtained from the foramen magnum to the vertex without contrast. The images were reconstructed using brain and bone algorithms. Thin section brain images were reformatted into coronal and sagittal planes. Intravenous contrast: None IMAGE QUALITY: Acceptable. FINDINGS: Skull/scalp: No abnormality. Parenchyma: Focal hypodensity in right perirolandic region that extends to the right parietal centrum semiovale and mcdermott radiata as well as right periatrial region represents age indeterminate vascular insult. Nonspecific few, scattered supratentorial white matter hypodensity are likely related to small vessel ischemic changes. No acute hemorrhage or mass. Arteries: Atherosclerotic calcification in bilateral carotid siphon Dural sinuses: No abnormal density suggestive of thrombosis. Ventricles: No hydrocephalus or displacement. Extra-axial spaces: No abnormal density. Brain volume: Normal for age. Craniocervical junction: No mass, Chiari malformation, or basilar invagination. Sella: No mass. Pa ranasal/mastoid sinuses: Moderate mucosal thickening in bilateral ethmoid sinuses. IMPRESSION: 1. Age indeterminate vascular insult in right perirolandic region that extends to the parietal centrum semiovale and mcdermott radiata. 2. Mild supratentorial white matter microvascular ischemic changes. Signed by: Dr. Crystal Patel M.D. on 08/28/2017 9:30 PM Dictated By: CRYSTAL PATEL MD 29 Transcribed By: JENNY on 08/28/172129 COPY TO: LINCOLN BONDS MD
[2018-08-07 13:03] VITALS: BP 197/86
--- NOTE | 2018-08-08 15:10 | Operative Report ---
DATE OF PROCEDURE: August 07, 2018 PREPROCEDURE DIAGNOSIS: Recurrent syncope of unknown etiology. POSTPROCEDURE DIAGNOSIS: Recurrent syncope of unknown etiology. PROCEDURE PERFORMED: Implantation of a loop recorder. ESTIMATED BLOOD LOSS: 5 mL. ANESTHESIA: Local. DESCRIPTION OF PROCEDURE: After informed consent was obtained, the patient was brought to the electrophysiology laboratory in a fasting, nonsedated state. The area over her chest was prepped and draped in the usual sterile fashion. Local anesthesia was used with 1% lidocaine. A 1-cm skin incision was made in the 4th intercostal space in the left parasternal area. The loop recorder was implanted using the implantation kit without any issues. The incision was closed using Vicryl and Dermabond. The patient tolerated the procedure well. The procedure was then completed. IMPRESSION: Successful implantation of a loop recorder. PLAN 1. Routine postoperative monitoring on a telemetry bed. 2. Discharge home. Follow up in 2 weeks. Job#: [id number]
--- NOTE | 2018-08-30 14:37 | Discharge Summary ---
HOSPITAL COURSE: The patient presented for elective procedure. She underwent implantation of a loop recorder without any issues. See report for details. She was discharged home in stable condition. See medication reconciliation form for details on discharge medicines. Follow up in 2 weeks. CANDIS VARMA MD Job#: [id number] RI
== END | disposition home or self-care (01) ==
LOC: CATH LAB 11:41
PROVIDERS: ATTEND Internal Medicine
DX: I48.0 Paroxysmal atrial fibrillation (principal); Z01.812 Encounter for preprocedural laboratory examination; Z79.82 Long term (current) use of aspirin; Z79.02 Long term (current) use of antithrombotics/antiplatelets; Z87.891 Personal history of nicotine dependence
CPT/HCPCS: 33282; 36415; 80048; 85025; 85610; C1764